=== PATIENT | male | born 1950 | race Caucasian/White ===

== ENCOUNTER 2018-11-11 21:27 | Emergency (ER) | payer BC ==
[~2018-11-11] VITALS: Ht 162.6 cm; Wt 68.4 kg
[2018-11-11 21:37] VITALS: BP 142/67; PULSE 87; RESP 18; Ht 162.6 cm; Wt 68.4 kg
[2018-11-11] MEDS ORDERED: D-ME473S2 PO (23:45)
[2018-11-11] MEDS ORDERED: IBUP-1542 PO (23:45)
[2018-11-11] MEDS ORDERED: AMOX500C2 PO (23:45)
[2018-11-11] MEDS ORDERED: AZIT500T3 PO (23:47)
--- NOTE | 2018-11-11 23:52 | ERD ---
ER Documentation Chief Complaint Chief Complaint Sore throat, cough, X 1 wk HPI This is a 68-year-old male with a nonsignificant past medical history presents ED with complaints of sore throat and cough times 1 week. Patient admits to having flulike symptoms last week. Patient developed runny nose and cough. Of utmost concern patient is a sore throat. Patient denies any fevers, chills, ear pain, sputum production, chest pain, difficulty swallowing, shortness breath, abdominal pain, nausea, vomiting, diarrhea, constipation and all other symptoms. No known drug allergies. Denies any history of smoking. ROS All systems reviewed and are negative except as per history of present illness. Medications Home Meds Active Scripts Azithromycin* (Zithromax*) 500 Mg Tablet, 500 MG PO DAILY for 5 Days, TAB Prov:NAEEM HAGER PA-C 11/11/18 Ibuprofen* (Motrin*) 600 Mg Tab, 600 MG PO Q6, #30 TAB Prov:NAEEM HAGER PA-C 11/11/18 Dextromethorphan Hb-Promethazine Hcl* (Promethazine DM* Syrup) 473 Ml Syrup, 5 ML PO Q6 PRN for COUGH for 3 Days, ML Prov:NAEEM HAGER PA-C 11/11/18 Allergies Allergies: Coded Allergies: No Known Allergy (Unverified , 08/12/13) PMhx/Soc Medical and Surgical Hx: pt denies Medical Hx, pt denies Surgical Hx Hx Alcohol Use: No Hx Substance Use: No Hx Tobacco Use: No Smoking Status: Never smoker FmHx Family History: No diabetes Physical Exam Vitals Vital Signs Date Temp Pulse Resp B/P (MAP) Pulse Ox O2 O2 Flow FiO2 Time Delivery Rate 11/11/18 98.8 87 18 142/67 97 21:37 (92) Physical Exam Physical Exam Vitals signs: Reviewed by me. General: Well developed, well nourished, in no acute distress. Patient is awake and alert. Head: Normocephalic, atraumatic. Eyes: Normal conjunctiva, Pupils PERRLA, EOM intact grossly ENT: Pharynx is clear, Moist mucous membranes, external ears, nose and mouth normal, there is no oropharyngeal erythema, there is no tonsillar adenopathy, exudate or erythema, no kissing tonsils, no uvula deviation, tympanic membrane visualized bilaterally no bulging, erythema, purulent air-fluid line seen, Neck: Supple, no masses, lymphadenopathy or JVD Respiratory: Clear to auscultation bilaterally with no wheezing, rhonchi, rales, no distress Cardiovascular: RRR, no murmurs, rubs, or gallops Neurologic: Alert and oriented, moving all extremities, normal speech, no focal weakness, no cerebellar signs. Normal mentation Skin: warm and dry, No rash Psych: Normal mood Results 24 hrs Current Medications Medications Dose Sig/Shantell Start Time Status Last (Trade) Ordered Route PRN Stop Time Admin Dose Reason Admin Ibuprofen 400 mg ONCE ONCE 11/12/18 (Motrin) PO 00:00 11/12/18 00:01 Lidocaine 15 ml ONCE ONCE 11/12/18 (Xylocaine PO 00:00 11/12/18 (Viscous)) 00:01 Procedures/MDM ER COURSE: The patient was given viscous lidocaine and ibuprofen The medication was well tolerated and the patient reports improvement in symptoms. The patient was stable throughout ED course. I kept the patient and/or family informed of laboratory and diagnostic imaging results throughout the emergency room course. The patient was promptly evaluated and a treatment plan was devised based on H&P and other data. This plan was discussed with the patient who agreed and had no further questions or concerns prior to discharge. [employer]ISION [employer]KIN-year-old male presents ED with complaints of cough and sore throat times 1 week. of upmost concern patient is a sore throat. Physical examination is unremarkable. Offered patient strep testing but patient refuses at this time. Patient is requesting antibiotics. Will give patient azithromycin to cover for both pulmonary and ENT infection. At this time there is no ENT or pulmonary emergency. No evidence of pneumonia, sepsis, meningitis, peritonsillar abscess, retropharyngeal abscess, Naseem's, epiglottitis, mastoiditis, among others. Vitals are stable patient can be managed close outpatient follow-up. Advised patient follow-up with his primary care in the next 24 hours. Return to ED with any worsening symptoms DISPOSITION PLAN: We discussed follow up with the patient's primary care doctor within 24 to 48 hours. Patient counseled regarding my diagnostic impression and care plan. Prior to discharge all questions answered. Pt agrees with treatment plan and understands strict return precautions. Precautionary instructions provided including instructions to return to the ER if not improving or for any worsening or changing symptoms or concerns. SPECIALIST FOLLOW UP RECOMMENDED: None Patient has been advised to follow up with primary care in 1-2 days. Disclaimer: Inadvertent spelling and grammatical errors are likely due to EHR/dictation software use and do not reflect on the overall quality of patient care. Also, please note that the electronic time recorded on this note does not necessarily reflect the actual time of the patient encounter. Blood Pressure Assessment: Patient's blood pressure was elevated (>120/80) but appears stable without evidence of hypertension emergency or urgency. The patient was counseled about the risks of hypertension and urged to pursue outpatient monitoring and therapy within a week with their primary care physician. Departure Diagnosis: Primary Impression: Pharyngitis Pharyngitis/tonsillitis etiology: unspecified etiology Qualified Codes: J02.9 - Acute pharyngitis, unspecified Additional Impression: URI (upper respiratory infection) URI type: unspecified URI Qualified Codes: J06.9 - Acute upper respiratory infection, unspecified Condition: Stable Patient Instructions: Self-Care for Sore Throats, Preventing Common Respiratory Infections, Azithromycin Oral tablet Additional Instructions: Paciente aconseja volver a Departamento de urgencias inmediatamente para snt omas nuevos o que empeoran . Paciente aconseja posteriores con el PCP en 1-2 holcomb . Paciente verbaliza la comprehensin y est de acuerdo con el tratamiento y el curso de accin. Si el paciente no tiene ninguna de atencin primaria pueden seguir con [facility] [address] [place] [address] o [facility] + [address] [address] NAEEM HAGER PA-C Nov 11, 2018 23:52
[2018-11-12] MEDS ORDERED: IBUPROFEN 200 MG TAB PO ONE
[2018-11-12] MEDS ORDERED: LIDOCAINE 2% VISC 15 ML CUP PO ONE
== END 2018-11-12 00:14 | disposition home or self-care (01) ==
LOC: FTE 21:27
DX: J02.9 Acute pharyngitis, unspecified (principal); J06.9 Acute upper respiratory infection, unspecified
CPT/HCPCS: 99283